=== PATIENT | male | born 1995 | race Asian ===

== ENCOUNTER 2018-04-22 17:44 | Emergency (ER) | payer SELFPAY ==
[~2018-04-22] VITALS: Ht 167.6 cm; Wt 86.2 kg
[2018-04-22] MEDS ORDERED: NKM (17:58)
[2018-04-22 18:21] VITALS: BP 130/82
[2018-04-22 18:40] VITALS: BP 130/82
[2018-04-22] MEDS ORDERED: Tetanus/Diptheria/Pertussis Vaccine 0.5ml Syr IM ONE (18:45)
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
== END 2018-04-22 19:30 | disposition left against medical advice (07) ==
LOC: EMR 19:06
DX: S01.81XA Laceration without foreign body of other part of head, initial encounter (principal); S61.412A Laceration without foreign body of left hand, initial encounter; W05.2XXA Fall from non-moving motorized mobility scooter, initial encounter; V09.9XXA Pedestrian injured in unspecified transport accident, initial encounter; Y92.488 Other paved roadways as the place of occurrence of the external cause; F17.200 Nicotine dependence, unspecified, uncomplicated; F12.90 Cannabis use, unspecified, uncomplicated; M54.9 Dorsalgia, unspecified; M54.2 Cervicalgia; R42 Dizziness and giddiness; R11.10 Vomiting, unspecified
CPT/HCPCS: 99282